=== PATIENT | female | born 1955 | race African-American/Black ===

== ENCOUNTER 2016-08-13 22:36 | Emergency (ER) | payer BC ==
[~2016-08-13] VITALS: Ht 167.6 cm; Wt 97.5 kg
[2016-08-13 23:28] LABS: Basophils # (auto) 0 uL; Basophils % (auto) 0.4 % (0.0-2.0); Eosinophils # (auto) 0.4 uL; Eosinophils % (auto) 3.8 % (0.0-7.0); Hematocrit 41.2 % (36.0-46.0); Hemoglobin 13.3 g/dL (12.2-16.2); Lymphocytes # (auto) 3.2 uL; Lymphocytes % (auto) 30.2 % (10.0-50.0); Mean Corpuscular Hemoglobin 27.8 pg (28.0-32.0); Mean Corpuscular Hgb Conc. 32.3 g/dL (32.0-36.0); Mean Corpuscular Volume 86.1 fL (80.0-100.0); Mean Platelet Volume 7.8 fL (7.4-10.4); Monocytes # (auto) 0.4 uL; Neutrophils # (auto) 6.5 uL; Neutrophils % (auto) 61.6 % (37.0-80.0); Platelet Count (auto) 338 10^3/uL (140-450); Red Cell Distribution Width 16.2 % (11.6-16.0); White Blood Cell 10.6 10^3/uL (4.4-10.8)
[2016-08-13 23:55] LABS: Urine RBC None Seen /hpf (0 - 4)
[2016-08-14] MEDS ORDERED: cloNIDine HCL 0.1 MG TAB PO ONE
[2016-08-14 00:03] LABS: Urine Bilirubin Negative (Negative); Urine Blood Negative /uL (Negative); Urine Color Straw (Yellow); Urine Glucose Normal (Normal); Urine Ketone Negative (Negative); Urine Nitrite Negative (Negative); Urine Squamous Epithelial Cell FEW /hpf (<5); Urine Urobilinogen Normal (Negative)
[2016-08-14 00:09] LABS: Albumin 3.7 g/dL (3.4-5.0); Alkaline Phosphatase 103 U/L (45-117); Anion Gap 12 (5-15); Aspartate Aminotransferase 15 U/L (15-37); BUN/Creatinine Ratio 23.8; Bilirubin, Total 0.3 mg/dL (0.2-1.0); Blood Urea Nitrogen 15 mg/dL (7-18); Calcium 9.2 mg/dL (8.5-10.1); Carbon Dioxide 26 mmol/L (21-32); Chloride 103 mmol/L (98-107); GFR African American 124 mL/min; GFR Non-African American 102 mL/min; Glucose 175 mg/dL (74-106); Magnesium 1.9 mg/dL (1.6-2.6); Potassium 3.9 mmol/L (3.5-5.1); Sodium 141 mmol/L (136-145); Total Protein 8.1 g/dL (6.4-8.2)
[2016-08-14] MEDS ORDERED: LORazepam 0.5 MG TAB PO ONE ×2 (00:30)
[2016-08-14 02:15] VITALS: BP 128/78
== END 2016-08-14 02:19 | disposition home or self-care (01) ==
LOC: EDBD 22:36 → ER 22:47
DX: R51 Headache (principal); I11.0 Hypertensive heart disease with heart failure; I50.9 Heart failure, unspecified; E11.9 Type 2 diabetes mellitus without complications; F41.9 Anxiety disorder, unspecified
CPT/HCPCS: 36415; 80053; 81001; 83735; 84484; 85025; 93005

== ENCOUNTER 2024-11-21 04:09 | Emergency (ER) | payer BC ==
[~2024-11-21] VITALS: Ht 165.1 cm; Wt 212.0 kg
--- NOTE | 2024-11-21 04:56 | ED.PDOC ---
History of Present Illness HPI Comments 69-year-old female with a history of hypertension, diabetes, CHF and anxiety brought in by EMS from home for evaluation of high blood pressure. States she woke up at 1:20 a.m., checked her blood pressure which was 163/102 mm Hg, and noted that her heart rate was 122. Patient states she took her medications: Carvedilol, Losartan, Lasix and Hydralazine, however her blood pressure increased to 198/116 mmHg and heart rate was still 116 bpm. She denies any acute chest pain, shortness of breath, headache, dizziness, vision changes, focal weakness or edema. She states she does feel anxious. Chief Complaint: High Blood Pressure Time Seen by MD: 04:55 Primary Care Provider: CROW Gomez Notes: Nurses Notes Allergies: Coded Allergies: Codeine (Verified Allergy, Unknown, 08/14/16) Iodine (Verified Allergy, Unknown, 08/14/16) Penicillins (Verified Allergy, Unknown, "CILLINS", 08/14/16) Information Source: Patient Mode of Arrival: EMS Severity: Moderate Timing: Hours Duration: Since onset Past Medical History PAST MEDICAL HISTORY: Anxiety, CHF, DM, HTN Surgical History: Hysterectomy [employer] History: No Pertinent [employer] History Family History Family History: Reviewed,noncontributory to illness Social History Smoker: Non-Smoker Alcohol: Denies ETOH Use Drugs: Denies Drug Use Lives In: Home Constitutional: denies: chills, diaphoresis, fatigue, fever, malaise, sweats, weakness, others EENTM: denies: blurred vision, double vision, ear bleeding, ear discharge, ear drainage, ear pain, ear ringing, eye pain, eye redness, hearing loss, mouth pain, mouth swelling, nasal discharge, nose bleeding, nose congestion, nose pain, photophobia, tearing, throat pain, throat swelling, voice changes, others Respiratory: denies: cough, hemoptysis, orthopnea, SOB at rest, shortness of breath, SOB with excertion, stridor, wheezing, others Cardiovascular: denies: chest pain, dizzy spells, diaphoresis, Dyspnea on exertion, edema, irregular heart beat, left arm pain, lightheadedness, palpitations, PND, syncope, others Gastrointestinal: denies: abdomen distended, abdominal pain, blood streaked bowels, constipated, diarrhea, dysphagia, difficulty swallowing, hematemesis, me katheryn, nausea, poor appetite, poor fluid intake, rectal bleeding, rectal pain, vomiting, others Genitourinary: denies: abnormal vagina bleeding, burning, dyspareunia, dysuria, flank pain, frequency, hematuria, incontinence, pain, , vagina discharge, urgency, others Neurological: denies: dizziness, fainting, headache, left sided numbness, left sided weakness, numbness, paresthesia, pre-existing deficit, right sided numbness, right sided weakness, seizure, speech problems, tingling, tremors, weakness, others Musculoskeletal: denies: back pain, gout, joint pain, joint swelling, muscle pain, muscle stiffness, neck pain, others Integumetry: denies: bruises, change in color, change in hair/nails, dryness, laceration, lesions, lumps, rash, wounds, others Allergic/Immunocompromised: denies: Difficulty Healing, Frequent Infections, Hives, Itching, others Hematologic/Lymphatic: denies: anemia, blood clots, easy bleeding, easy bruising, swollen glands, others Endocrine: denies: excessive hunger, excessive sweating, excessive thirst, excessive urination, flushing, intolerance to cold, intolerance to heat, unexplained weight gain, unexplained weight loss, others Psychiatric: reports: anxiety; denies: bipolar disorder, depression, hopeless, panic disorder, schizophrenia, sleepless, suicidal, others Physical Exam General Appearance: No Apparent Distress HEENT: Other (Pupils and face symmetric. Moist mucous membranes.) Neck: Full Range of Motion, Normal Inspection Respiratory: Lungs Clear, No Accessory Muscle Use, No Respiratory Distress, Normal Breath Sounds Cardiovascular: No Edema, No JVD, Regular Rate/Rhythm Breast Exam: Deferred Gastrointestinal: Non Tender, Soft Genitalia: Deferred Pelvic: Deferred Rectal: Deferred Extremities: Normal inspection, Normal range of motion, Non-tender, No pedal edema Neurologic: Alert (Oriented x4), Normal Affect, Other (Anxious. Ambulatory.) Cerebellar Function: NOT DONE Reflexes: NOT DONE Skin: Dry, Normal Color, Warm Lymphatic: NOT DONE Was a procedure done? Was a procedure done?: No EKG EKG : Comments Sinus tach, rate 105, normal intervals, normal axis, normal QRS, no ST/T changes. Differential Dx Considerations may include: Hypertensive urgency/emergency, anxiety, arrhythmia, mi, CHF, among others X-Ray, Labs, Meds, VS Vital Signs Date Time Temp Pulse Resp B/P (MAP) Pulse Ox O2 Delivery O2 Flow Rate FiO2 11/21/24 06:52 102 171/90 11/21/24 06:42 102 171/90 11/21/24 04:24 105 11/21/24 04:09 98.5 104 16 167/88 (114) 98 98.5 Lab Test 11/21/24 05:41 11/21/24 04:31 Range/Units Troponin I High Sensitivity 15 16 </=34 ng/L White Blood Count 9.7 4.4-10.8 10^3/uL Red Blood Count 4.71 4.0-5.20 10^6/uL Hemoglobin 13.3 12.2-16.2 g/dL Hematocrit 40.7 36.0-46.0 % Mean Corpuscular Volume 86.3 80.0-100.0 fL Mean Corpuscular Hemoglobin 28.2 28.0-32.0 pg Mean Corpuscular Hemoglobin Concent 32.7 32.0-36.0 g/dL Red Cell Distribution Width 16.3 H 11.8-14.3 % Platelet Count 288 140-450 10^3/uL Mean Platelet Volume 7.8 6.9-10.8 fL Neutrophils (%) (Auto) 64.1 37.0-80.0 % Lymphocytes (%) (Auto) 24.9 10.0-50.0 % Monocytes (%) (Auto) 7.1 0.0-12.0 % Eosinophils (%) (Auto) 3.3 0.0-7.0 % Basophils (%) (Auto) 0.6 0.0-2.0 % Neutrophils # (Auto) 6.2 1.6-8.6 10 ^3/uL Lymphocytes # (Auto) 2.4 0.4-5.4 10 ^3/uL Monocytes # (Auto) 0.7 0-1.3 10 ^3/uL Eosinophils # (Auto) 0.3 0-0.8 10 ^3/uL Basophils # (Auto) 0.1 0-0.2 10 ^3/uL Nucleated Red Blood Cells 0.0 % Sodium Level 142 136-145 mmol/L Potassium Level 4.4 3.5-5.1 mmol/L Chloride Level 106 98-107 mmol/L Carbon Dioxide Level 28 20-31 mmol/L Anion Gap 8 5-15 Blood Urea Nitrogen 19 9-23 mg/dL Creatinine 0.81 0.550-1.02 mg/dL Glomerular Filtration Rate Calc 79 >90 mL/min BUN/Creatinine Ratio 23.5 H 10.0-20.0 Serum Glucose 148 H 74-106 mg/dL Calcium Level 9.4 8.7-10.4 mg/dL B-Type Natriuretic Peptide 35.42 0-100 pg/mL Current Medications Medications (Trade) Dose Ordered Sig/Vicki Route Start Time Stop Time Status Last Admin Lorazepam (Ativan Inj) 1 mg ONCE ONCE IV 11/21/24 04:30 11/21/24 04:31 DC 11/21/24 05:17 Labetalol HCl (Labetalol HCl) 10 mg ONCE ONCE IV 11/21/24 06:30 11/21/24 06:31 DC 11/21/24 06:42 X-Ray, Labs, Meds, VS Comment 69-year-old female with a history of hypertension, diabetes, CHF and anxiety brought in by EMS from home complaining of elevated blood pressure and rapid heart rate Vitals remarkable for heart rate 104, BP 167/88 Exam remarkable for tachycardia and anxiety Rhythm strip independently interpreted by me: Sinus tach, rate 105, no ectopy. Chest x-ray independently interpreted by me: Cardiomegaly. No definite infiltrate or effusion. Normal mediastinal width. Grossly normal bony thorax. No free air. No pneumothorax. CBC, basic metabolic panel, BNP and troponin unremarkable for any abnormality of acute significance Patient treated with the following in the ED: Ativan 1 mg IV. On re-evaluation, patient's blood pressure was 179/90 and heart rate was still elevated. Oxygen saturation was normal. IV labetalol was ordered improvement of blood pressure and heart rate. Other vitals remained stable. Hospitalization was considered, however patient had rapid improvement of symptoms with treatment in the ED, and the patient stated she absolutely did not want to be hospitalized. I now feel the patient is stable for discharge with close outpatient follow-up with her primary physician. Advised to continue current medications as directed. Time of 1ST Reevaluation: 04:48 Reevaluation 1ST: Unchanged Time of 2ND Reevaluation: 06:00 Reevaluation 2ND: Improved Patient Education/Counseling: Diagnosis, Treatment Family Education/Counseling: No Family Present SEPSIS Sepsis Screen Date sepsis recognized/suspect: Nov 21, 2024 Time Sepsis recognized/suspect: 408 Recent Procedure: No On Antibiotic Therapy: No Respiratory Rate >20: No Heart Rate >90: No Temp<36 C (96.8 F) or >38.3 C: No SBP <90 or MAP <65 mmHG: No New Acute Mental Status Change: No Is the patient on CPAP, BIPAP,: No SEPSIS EXCLUSION NOTE: Sepsis Exclusion Note: Patient presents with SIRS criteria, but the SIRS response is attributed to [anxiety ], not a suspected infection. Sepsis bundle is not initiated at this time, due to this reason. Further management will focus on the treatment of the above condition (s). Physician Orders Chest Portable (11/21/24 04:22) Urinalysis (11/21/24 04:22) Vital Signs Date Time Temp Pulse Resp B/P (MAP) Pulse Ox O2 Delivery O2 Flow Rate FiO2 11/21/24 06:52 102 171/90 11/21/24 06:42 102 171/90 11/21/24 04:24 105 11/21/24 04:09 98.5 104 16 167/88 (114) 98 98.5 Laboratory Tests Test 11/21/24 04:31 White Blood Count 9.7 10^3/uL (4.4-10.8) Medications Medications Dose Ordered Sig/Vicki Route Start Time Stop Time Status Last Admin Dose Admin Labetalol HCl 10 mg ONCE ONCE IV 11/21/24 06:30 11/21/24 06:31 DC 11/21/24 06:42 Lorazepam 1 mg ONCE ONCE IV 11/21/24 04:30 11/21/24 04:31 DC 11/21/24 05:17 Departure 1 Departure Time of Disposition: 06:04 Impression: Primary Impression: Hypertensive urgency Disposition: HOME / SELF CARE / HOMELESS Condition: Stable Additional Instructions: Your blood tests, including screening tests for heart attack and heart failure, were unremarkable. Your chest x-ray showed an enlarged heart, but no other acute findings. Continue your current medications as directed. Follow-up with your primary doctor in 1-2 days for re-evaluation of your blood pressure and possible medication adjustment. Discharged With: Self Critical Care Note Critical Care Time?: Yes (35 min-critical care time only) Critical care comment: Critical care time including multiple bedside re-evaluations, review of lab and imaging studies, and discussion of the case with the admitting provider. Patient is high risk for hemodynamic decompensation. Stability Stability form required: No Heart Score Heart Score: Heart Score Response (Comments) Value History N/A 0 EKG N/A 0 Age N/A 0 Risk Factors N/A 0 Troponin N/A 0 Total 0 I personally scribed for RANJIT SANTACRUZ MD ([email or web address]) on 11/21/24 at 04:56. Electronically submitted by Josep Chavis ([email or web address]). RANJIT SANTACRUZ MD Nov 21, 2024 04:56
[2024-11-21] MEDS: LORazepam 2MG/ML-1ML VIAL IV ONE (05:17)
[2024-11-21 05:18] LABS: Hematocrit 40.7 % (36.0-46.0); Hemoglobin 13.3 g/dL (12.2-16.2); Mean Corpuscular Hemoglobin 28.2 pg (28.0-32.0); Mean Corpuscular Volume 86.3 fL (80.0-100.0); Nucleated Red Blood Cells % 0.0 %
[2024-11-21 05:25] LABS: Chloride 106 mmol/L (98-107); Potassium 4.4 mmol/L (3.5-5.1); Sodium 142 mmol/L (136-145)
[2024-11-21 05:26] LABS: Anion Gap 8 (5-15); Carbon Dioxide 28 mmol/L (20-31)
[2024-11-21 05:27] LABS: Calcium 9.4 mg/dL (8.7-10.4)
[2024-11-21 05:32] LABS: BUN/Creatinine Ratio 23.5 (10.0-20.0); Blood Urea Nitrogen 19 mg/dL (9-23)
[2024-11-21 05:52] LABS: Glucose 148 mg/dL (74-106)
--- NOTE | 2024-11-21 06:15 | DVH ---
CHEST RADIOGRAPH Indication: hi bp Technique: Single frontal view of the chest was obtained COMPARISON: None FINDINGS: Lines and Tubes: None Lungs: Mild increased interstitial prominence Pleura: No effusion. No pneumothorax. Cardiomediastinal contours: Cardiomegaly Bones: Unremarkable IMPRESSION: Mild pulmonary vascular congestion
--- NOTE | 2024-11-21 06:41 | ECG ---
[facility] Test Date: 2024-11-21 Test Time: 04:24:20 Pat Name: CHEYENNE TAY Department: ED Room: Gender: F Briar Wood Sorter: : 1955 Requested By: RANJIT ANDRADE Order Number: [id number] Reading MD: Measurements Intervals [place] Rate: 105 P: 68 [place]: 196 QRS: 33 QRSD: 96 T: 48 QT: 329 QTc: 435 Interpretive Statements Sinus tachycardia Baseline wander in lead(s) V6 Please click the below link to view image of tracing.
[2024-11-21] MEDS: LABETALOL HCL 20 MG/4 ML VL IV ONE ×2 (06:42→06:52)
[2024-11-21 08:08] VITALS: BP 160/89; PULSE 98; RESP 16; TEMP 98.1; O2SAT 96
== END 2024-11-21 08:12 | disposition home or self-care (01) ==
LOC: ER 04:09 → EDBD 04:09 → ER 08:12
DX: I16.0 Hypertensive urgency (principal); I11.0 Hypertensive heart disease with heart failure; I50.9 Heart failure, unspecified; E11.9 Type 2 diabetes mellitus without complications; F41.9 Anxiety disorder, unspecified; Z90.710 Acquired absence of both cervix and uterus; Z88.0 Allergy status to penicillin; Z88.5 Allergy status to narcotic agent; Z88.8 Allergy status to other drugs, medicaments and biological substances
CPT/HCPCS: 36415; 71045; 80048; 83880; 84484; 85025; 93005; 96374; 96375; 99285; J2060